=== PATIENT | female | born 1975 | race Caucasian/White ===

== ENCOUNTER → 2020-06-07 14:41 | Outpatient (BNVA) | payer OTHER, SELFPAY | PROVIDERS: Family Provider Family Medicine; PCP Family Medicine; Visit Provider Nurse Practitioner Family | DX: Z11.59 Encounter for screening for other viral diseases (principal); Z20.828 Contact with and (suspected) exposure to other viral communicable diseases; J06.9 Acute upper respiratory infection, unspecified | CPT/HCPCS: 87635 ==

== ENCOUNTER → 2020-10-06 12:02 | Outpatient (BNVA) | payer OTHER, MEDICAID, SELFPAY | PROVIDERS: Family Provider Family Medicine; PCP Family Medicine; Visit Provider Family Medicine | DX: M25.50 Pain in unspecified joint (principal); M79.602 Pain in left arm; M79.601 Pain in right arm; Z68.28 Body mass index [BMI] 28.0-28.9, adult | CPT/HCPCS: 80053; 84443; 85025; 85651; 86140 ==

== ENCOUNTER → 2022-03-23 11:14 | Outpatient (BNVA) | payer MEDICAID, SELFPAY | PROVIDERS: Family Provider Family Medicine; PCP Family Medicine; Visit Provider Emergency Medicine | DX: J02.9 Acute pharyngitis, unspecified (principal) | CPT/HCPCS: 87426; 87880 ==

== ENCOUNTER 2022-11-13 15:27 | Outpatient (CLI) | payer OTHER, SELFPAY ==
--- NOTE | 2022-11-13 15:32 | XR_ITS ---
WS: [id number] Cervical spine, 3 views, 11/13/2022 Clinical Data: continued right radicular neck pain Comparison: None. Findings: No compression fractures are seen. The disc heights are normal. There is minimal anterior o steoarthritic spurring from C3 through C7. There is no prevertebral soft tissue swelling. The odontoi d is unremarkable. The soft tissues of the neck and the lung apices are normal. XR/XR cervical spine 3V* [id number] Impression: Mild osteoarthritis C3-C7
== END 2022-11-13 15:28 | disposition home or self-care (01) ==
PROVIDERS: PCP Family Medicine; Visit Provider Family Medicine
DX: M50.30 Other cervical disc degeneration, unspecified cervical region (principal); M47.812 Spondylosis without myelopathy or radiculopathy, cervical region
CPT/HCPCS: 72040

== ENCOUNTER 2024-01-01 10:22 | Outpatient (CLI) | payer OTHER, MEDICAID, SELFPAY ==
--- NOTE | 2024-01-01 10:30 | MM_ITS ---
WS: [email or web address] BILATERAL 3D TOMOSYNTHESIS DIGITAL SCREENING MAMMOGRAPHY WITH CAD CLINICAL INFORMATION: SCREENING HISTORY: Screening mammogram. Chronic LEFT breast pain COMPARISON: 2016 TECHNIQUE: Bilateral CC and MLO views. FINDINGS: The breasts are composed of heterogeneous fibroglandular density tissue, which can limit the detectio n of small underlying mass lesions. No suspicious mass, asymmetry, calcifications, or architectural d istortion. No evidence of malignancy. A few incidental punctate calcifications. MM/[place] [id number] IMPRESSION: BI-RADS: 2-Benign FOLLOW UP: 1 Year Follow-up Recommend return to annual screening mammography.
== END 2024-01-01 10:23 | disposition home or self-care (01) ==
LOC: MOBLMAM 10:29
PROVIDERS: PCP Family Medicine; Visit Provider Family Medicine
DX: Z12.31 Encounter for screening mammogram for malignant neoplasm of breast (principal); R92.333 Mammographic heterogeneous density, bilateral breasts
CPT/HCPCS: 77063; 77067

== ENCOUNTER → 2024-04-28 09:42 | Outpatient (BNVA) | payer OTHER, MEDICAID, SELFPAY | PROVIDERS: PCP Family Medicine; Visit Provider Family Medicine | DX: Z00.00 Encounter for general adult medical examination without abnormal findings (principal) | CPT/HCPCS: 80053; 80061; 85025 ==

== ENCOUNTER → 2024-05-12 09:14 | Outpatient (BNVA) | payer OTHER, MEDICAID, SELFPAY | PROVIDERS: PCP Family Medicine; Visit Provider Family Medicine | DX: Z02.6 Encounter for examination for insurance purposes (principal) | CPT/HCPCS: 83036 ==

== ENCOUNTER → 2024-11-17 15:10 | Outpatient (BNVA) | payer OTHER, MEDICAID, SELFPAY | PROVIDERS: PCP Family Medicine; Visit Provider Family Medicine | DX: Z20.5 Contact with and (suspected) exposure to viral hepatitis (principal) | CPT/HCPCS: 86705; 86706; 86709; 86803; 87340 ==

== ENCOUNTER → 2025-01-12 10:09 | Outpatient (BNVA) | payer OTHER, SELFPAY | PROVIDERS: PCP Family Medicine; Visit Provider Nurse Practitioner | DX: M77.31 Calcaneal spur, right foot (principal) | CPT/HCPCS: 73610 ==

== ENCOUNTER 2025-01-21 09:55 | Outpatient (CLI) | payer OTHER, SELFPAY ==
--- NOTE | 2025-01-21 10:00 | MM_ITS ---
WS: [email or web address] SCREENING DIGITAL BREAST TOMOSYNTHESIS MAMMOGRAM WITH CAD HISTORY: SCREENING COMPARISON: 01/01/2024, 11/19/2015 Bilateral CC and MLO with tomosynthesis and synthetic mammography submitted. Computer aided detection analyzed. Breast composition: The breasts are heterogeneously dense, which may obscure small masses. New lobulated mass of increased density in the medial inferior LEFT breast near 7:00 at a middle depth. Mass measures 6 x 10 x 8 mm. There is an additional asymmetry of increased density central to the nipple which also needs further evaluation within the LEFT breast. RIGHT breast is negative. MM/MM scr BI tomosynthesis [id number] IMPRESSION: BI-RADS: 0 - Incomplete: Need additional imaging evaluation FOLLOW UP: Need Additional Imaging LEFT breast: Spot compression views (CC and MLO). True ML. Ultrasound to follow if abnormality persists.
== END 2025-01-21 09:56 | disposition home or self-care (01) ==
LOC: MOBLMAM 09:56
PROVIDERS: PCP Family Medicine; Visit Provider Family Medicine
DX: Z12.31 Encounter for screening mammogram for malignant neoplasm of breast (principal); R92.333 Mammographic heterogeneous density, bilateral breasts; N63.24 Unspecified lump in the left breast, lower inner quadrant; N63.20 Unspecified lump in the left breast, unspecified quadrant
CPT/HCPCS: 77063; 77067

== ENCOUNTER 2025-02-16 08:04 | Outpatient (CLI) | payer OTHER, SELFPAY ==
--- NOTE | 2025-02-16 08:00 | MM_ITS ---
WS: [email or web address] ADDITIONAL VIEWS LEFT MAMMOGRAM WITH DIGITAL BREAST TOMOSYNTHESIS. HISTORY: R92.8 - Other abnormal and inconclusive findings on diagn... COMPARISON: 01/21/2025, 01/01/2024 Spot compression views LEFT breast in CC, MLO projections and true ML submitted with digital breast tomosynthesis and SM. Breast composition: The breasts are heterogeneously dense, which may obscure small masses. Mass in the medial inferior LEFT breast persists measuring 7 x 6 x 7 mm. Margins are slightly lobulated but otherwise distinct margins. The asymmetry central to the nipple resolves. The distortion and nodule central to the nipple is noted at evident on additional imaging. LEFT breast ultrasound, limited. Small cluster cyst LEFT breast 7:00, 1 cm from the nipple. No increased vascularity. There is a complex cyst with septations and slightly lobulated borders measuring six 6 x 6 x 7 mm at 7:00, 4 cm from the nipple. No increased vascularity identified. MM/MM diag LT tomosynthesis [id number] IMPRESSION: BI-RADS: 4 - Suspicious Finding - Biopsy Should Be Considered FOLLOW UP: Biopsy Recommended Ultrasound guided biopsy recommended of the complex cystic mass LEFT breast at 7:00, 4 cm from the nipple. This may be a complex cyst but due to the shape and septations neoplasm needs to be excluded. Recommend ultrasound-guided biopsy a t this time.
--- NOTE | 2025-02-16 08:30 | US_ITS ---
WS: [email or web address] ADDITIONAL VIEWS LEFT MAMMOGRAM WITH DIGITAL BREAST TOMOSYNTHESIS. HISTORY: R92.8 - Other abnormal and inconclusive findings on diagn... COMPARISON: 01/21/2025, 01/01/2024 Spot compression views LEFT breast in CC, MLO projections and true ML submitted with digital breast tomosynthesis and SM. Breast composition: The breasts are heterogeneously dense, which may obscure small masses. Mass in the medial inferior LEFT breast persists measuring 7 x 6 x 7 mm. Margins are slightly lobulated but otherwise distinct margins. The asymmetry central to the nipple resolves. The distortion and nodule central to the nipple is noted at evident on additional imaging. LEFT breast ultrasound, limited. Small cluster cyst LEFT breast 7:00, 1 cm from the nipple. No increased vascularity. There is a complex cyst with septations and slightly lobulated borders measuring six 6 x 6 x 7 mm at 7:00, 4 cm from the nipple. No increased vascularity identified. US/[place] breast [place] complete [id number] IMPRESSION: BI-RADS: 4 - Suspicious Finding - Biopsy Should Be Considered FOLLOW UP: Biopsy Recommended Ultrasound guided biopsy recommended of the complex cystic mass LEFT breast at 7:00, 4 cm from the nipple. This may be a complex cyst but due to the shape and septations neoplasm needs to be excluded. Recommend ultrasound-guided biopsy a t this time.
== END 2025-02-16 08:05 | disposition home or self-care (01) ==
LOC: RAD 08:06
PROVIDERS: PCP Family Medicine; Visit Provider Family Medicine
DX: N60.02 Solitary cyst of left breast (principal)
CPT/HCPCS: 76641; 77061; G0279

== ENCOUNTER 2025-02-25 11:56 | Outpatient (CLI) | payer OTHER, MEDICAID, SELFPAY ==
--- NOTE | 2025-02-25 13:15 | US_ITS ---
WS: [email or web address] ULTRASOUND-GUIDED LEFT BREAST BIOPSY HISTORY: Complex cystic mass LEFT breast 7:00. COMPARISON: 02/16/2025, 11/11/2015 Procedure, risks and complications are explained to the patient. Medications are reviewed. Consent is obtained. The mass in the LEFT breast is localized with ultrasound. Mass localizes to 7:00, 4 cm from the nipple. Skin is cleansed with ChloraPrep and anesthetized with 1% buffered lidocaine. Small dermatome is made. Under sterile conditions mass is biopsied with a 14-gauge Achieve needle. Multiple core biopsies are performed. Material placed in formalin and sent to pathology for review. No complications encountered. During the biopsy of this mass became smaller in size and begin to collapse. Breast tissue marker (Bard ultrasound enhanced ribbon): Single. Patient left the radiology suite with no complications. Patient is [place] [facility] [place] call with any concerns. US/[place] [id number] IMPRESSION: 1. Uncomplicated core needle biopsy LEFT breast mass at 7:00. PATHOLOGY: Fibrocystic changes, duct ectasia, fibrosis, sclerosing adenosis and apocrine metaplasia. No atypia or malignancy. RECOMMENDATION: LEFT breast ultrasound follow-up 6 months.
== END 2025-02-25 11:57 | disposition home or self-care (01) ==
PROVIDERS: PCP Family Medicine; Visit Provider Family Medicine
DX: N63.20 Unspecified lump in the left breast, unspecified quadrant (principal); R92.8 Other abnormal and inconclusive findings on diagnostic imaging of breast; N63.23 Unspecified lump in the left breast, lower outer quadrant
CPT/HCPCS: 19083; 88305

== ENCOUNTER → 2025-04-28 10:08 | Outpatient (BNVA) | payer OTHER, MEDICAID, SELFPAY | PROVIDERS: PCP Family Medicine; Visit Provider Family Medicine | DX: Z00.00 Encounter for general adult medical examination without abnormal findings (principal) | CPT/HCPCS: 80053; 80061; 83036; 85025 ==

== ENCOUNTER → 2025-05-06 14:39 | Outpatient (BNVA) | payer OTHER, MEDICAID, SELFPAY | PROVIDERS: PCP Family Medicine; Visit Provider Family Medicine | DX: Z01.419 Encounter for gynecological examination (general) (routine) without abnormal findings (principal) | CPT/HCPCS: 87624 ==